=== PATIENT | male | born 1995 | race Caucasian/White ===

== ENCOUNTER 2020-10-12 17:03 | Emergency (ER) | payer OTHER ==
[~2020-10-12] VITALS: Ht 185.4 cm; Wt 103.0 kg
--- NOTE | 2020-10-12 17:03 | NUR ---
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
[2020-10-12] MEDS ORDERED: SYNTHROID (17:14)
--- NOTE | 2020-10-12 17:30 | NUR ---
XR AT BS
[2020-10-12] MEDS ORDERED: MORPHINE SULFATE 4 MG/ML, 1ML ONE (17:46)
[2020-10-12] MEDS ORDERED: ONDANSETRON 2MG/ML, 2ML ONE (17:46)
[2020-10-12] MEDS ORDERED: PLEASE ENTER ALLERGIES MC SCH (18:00)
[2020-10-12] MEDS ORDERED: ONDANSETRON 2MG/ML, 2ML IVPush ONE (18:00)
[2020-10-12] MEDS ORDERED: KETAMINE 100 MG/ML, 5ML IV ONE (18:00)
[2020-10-12] MEDS ORDERED: MORPHINE SULFATE 4 MG/ML, 1ML IVPush PRN (18:00)
[2020-10-12] MEDS ORDERED: KETAMINE 10 MG/ML, 20ML ONE (18:15)
--- NOTE | 2020-10-12 18:44 | NUR ---
PT TOLERATED SEDATION FOR REDUCTION OF LT ANKLE/TIBIA W/O NV- AAOX4 WITH VS BACK TO BASELINE, SPLINT PLACED BY TECH & ERP, SIGNED CONSENT & WHO FORM PLACED IN CHART WITH VS PRINT-OUT; AWAITING XR.
--- NOTE | 2020-10-12 18:51 | NUR ---
XR AT BS
[2020-10-12 19:05] VITALS: BP 135/56
--- NOTE | 2020-10-12 19:55 | NUR ---
Patient & dad given ortho/crutch use/discharge instructions and Rx, they have confirmed that they understand the instructions. Patient ambulatory with crutches accompanied by dad. NAD, all questions answered appropriately, denies additional needs at this time. No personal belongings left in room after discharge.
== END 2020-10-12 20:31 | disposition home or self-care (01) ==
LOC: ED 20:15
DX: S82.62XA Displaced fracture of lateral malleolus of left fibula, initial encounter for closed fracture (principal); W18.30XA Fall on same level, unspecified, initial encounter; Y93.89 Activity, other specified; Y92.410 Unspecified street and highway as the place of occurrence of the external cause; Y99.8 Other external cause status
CPT/HCPCS: 27788; 73590; 73610; 96374; 96375; 99152; 99285; J2270; J2405